=== PATIENT | female | born 1975 | race Caucasian/White ===

== ENCOUNTER 2016-06-08 09:08 | Emergency (ER) | payer OTHER ==
[2016-06-08 10:14] VITALS: BP 142/100
--- NOTE | 2016-06-08 10:45 | UC ---
Throat Pain/Nasal Brodie HPI - HPI Summary HPI Summary: FIVE DAYS RIGHT SIDED NECK "GLANDS" SWELLING, RADIATES TO RIGHT EAR. NO FEVER CHILLS, BODY ACHES, NAUSEA OR VOMITING. - History of Current Complaint Chief Complaint: UCGeneralIllness Stated Complaint: THROAT COMPLAINT Time Seen by Provider: 06/08/16 10:20 Hx Obtained From: Patient Hx Last Menstrual Period: ablation Onset/Duration: Gradual Onset, Lasting Days, Still Present Severity: Moderate Cough: Nonproductive Associated Signs & Symptoms: Positive: Dysphagia, Hoarseness - Epiglottits Risk Factors Epiglottis Risk Factors: Negative - Allergies/Home Medications Allergies/Adverse Reactions: Allergies Allergy/AdvReac Type Severity Reaction Status Date / Time No Known Allergies Allergy Verified 06/08/16 10:15 Home Medications: Home Medications Amlodipine Besylate [Norvasc-] 10 mg PO DAILY 06/08/16 [History Confirmed ] PMH/Surg Hx/FS Hx/Imm Hx Previously Healthy: Yes Endocrine History Of: Denies: Diabetes, Thyroid Disease Cardiovascular History Of: Reports: Hypertension Denies: Cardiac Disorders Respiratory History Of: Denies: COPD, Asthma GI/ History Of: Denies: Ulcer - Surgical History Surgical History: None - Family History Known Family History: Positive: Cardiac Disease - father, Hypertension - father and mother, Diabetes - mother - Social History Occupation: Employed Full-time Lives: With Family Alcohol Use: Occasionally Substance Use Type: None Smoking Status (MU): Never Smoked Tobacco - Immunization History Most Recent Influenza Vaccination: mar 2016 Review of Systems Constitutional: Negative Skin: Negative Eyes: Negative ENT: Sore Throat Respiratory: Negative Cardiovascular: Negative Gastrointestinal: Negative Genitourinary: Negative Motor: Negative Neurovascular: Negative Musculoskeletal: Negative Neurological: Negative Psychological: Negative All Other Systems Reviewed And Are Negative: Yes Physical Exam Triage Information Reviewed: Yes Appearance: Well-Appearing, No Pain Distress, Well-Nourished Vital Signs: Initial Vital Signs Temp 98.3 F 06/08/16 10:08 Pulse 73 06/08/16 10:08 Resp 16 06/08/16 10:08 BP 142/100 06/08/16 10:08 Pulse Ox 100 06/08/16 10:08 Vital Signs Reviewed: Yes Eye Exam: Normal ENT Exam: Normal ENT: Positive: Normal ENT inspection, Hearing grossly normal, Pharynx normal, TMs normal. Negative: Nasal congestion, Tonsillar swelling, Tonsillar exudate Dental Exam: Normal Neck: Positive: Nontender, Tenderness @ - RIGHT ANT CERVICAL LN, Enlarged Nodes @ - RIGHT ANT CERV LN. Negative: Nuchal Rigidity Respiratory Exam: Normal Respiratory: Positive: Chest non-tender, Lungs clear, Normal breath sounds, No respiratory distress, No accessory muscle use Cardiovascular Exam: Normal Cardiovascular: Positive: RRR, No Murmur, Pulses Normal Abdominal Exam: Normal Abdomen Description: Positive: Nontender, No Organomegaly Musculoskeletal Exam: Normal Neurological Exam: Normal Psychological Exam: Normal Psychological: Positive: Normal Response To Family Skin Exam: Normal Throat Pain/Nasal Course/Dx - Differential Dx/Diagnosis Differential Diagnosis/HQI/PQRI: Influenza, Pharyngitis, Sinusitis, Tonsillitis , URI Provider Diagnoses: RIGHT ANTERIOR CERVICAL LYMPHADENOPATHY Discharge - Discharge Plan Condition: Stable Disposition: HOME Prescriptions: Amoxicillin/Clavulanate TAB* [Augmentin TAB 875*] 875 mg PO BID #20 tab Patient Education Materials: Lymphadenopathy (ED) Referrals: Chrissy Wick MD [Primary Care Provider] -
== END 2016-06-08 11:04 | disposition home or self-care (01) ==
LOC: UCEAST 09:08
DX: R59.1 Generalized enlarged lymph nodes (principal)
CPT/HCPCS: 99212; G0463